=== PATIENT | female | born 1960 | race Caucasian/White ===

== ENCOUNTER 2024-04-28 17:10 | Emergency (ER) | payer OTHER, SELFPAY ==
[2024-04-28 17:17] VITALS: BP 213/124
--- NOTE | 2024-04-28 17:17 | ED.PDOC.TRB ---
ED Provider Triage
-
Patient seen by provider in Triage?: Seen in Triage
Attestation: A medical screening examination has been initiated by a qualified medical provider. Based on the assessment performed at this time, it has been determined that an emergent medical condition may exist and the patient has been informed
that further medical evaluation and possible additional diagnostic testing may be needed.
HPI: 64-year-old female presents for evaluation of low back pain rating down the left leg ongoing for the past week. She has been taking Tylenol and Excedrin without relief. Pain began after bending forward and feeling a pop in the back. Denies
loss of urinary continence
GENERAL: Alert , in no apparent distress
EYE: No visual abnormalities.
NECK: Trachea midline
ENT: No visible abnormalities.
LUNGS: No acute respiratory distress
NEUROLOGICAL: Alert and oriented
SKIN: Skin intact. No visible changes.
MUSCULOSKELETAL: Moving extremities normally
PSYCH: Normal and appropriate interaction.
Assessment: Acute lumbar radiculopathy, no clinical symptoms concerning for spinal cord compression. Will give Toradol for supportive care
This is a medical evaluation conducted in person to initiate diagnostic evaluation and provide initial therapeutics. Please see further documentation by the treating clinician.
[2024-04-28 17:41] VITALS: BMI 39.3
[2024-04-28] MEDS: TORADOL 30 MG IM (17:43)
[2024-04-28 18:14] VITALS: BP 187/105
--- NOTE | 2024-04-28 19:56 | ED.GENMED ---
History of Present Illness
General
Chief Complaint: Back Pain
Source: patient
Time Seen by Provider: 04/28/24 19:10
History of Present Illness
History of Present Illness:
64-year-old female with past medical history of a lower GI bleed presenting to the emergency department for evaluation of left-sided lower back pain that has been gradually worsening over the last week with pain now radiating down into her left
thigh with some paresthesia to the anterior left thigh. Patient states that movement seems to exacerbate her symptoms. She has been taking Tylenol with minimal relief. Patient has an appointment with back specialist tomorrow but due to the nature
of the pain decided to come to the ER this evening for further evaluation. Patient denies any fevers, chills, rigors, bowel changes, urinary symptoms, saddle anesthesia, focal weakness or numbness, traumatic injuries, abnormal weight loss, chronic
corticosteroid use. Patient without any other concerns.
Past History
Past History
ED Past Medical History: Other (Hemorrhoids)
ED Past Surgical History: None
Social History
Tobacco: Non-smoker
Alcohol: None
Drug: None
Personal:
Living: with family
Family History
Family History: Other (Cancer)
Review of Systems
Review of Systems
All Other Systems: ROS reviewed and negative except as documented in HPI and ROS
Phy Exam
Physical Exam
Physical Exam:
GENERAL: Alert , in no apparent distress
EYE: clear conjunctiva b/l
NECK: Supple
ENT: mmm.
ABDOMEN: Soft, without focal tenderness, no r/g, no cvat
BACK: Normal range of motion, mild sacroiliac tenderness on the left, no midline bony tenderness, no rashes
NEUROLOGICAL: Alert and oriented, no focal neuro deficits. Patellar deep tendon reflexes intact and equal bilaterally, sensation grossly intact and equal to light touch bilateral lower extremities
SKIN: Warm and dry, skin intact.
MUSCULOSKELETAL: No edema, well perfused. EHL intact bilaterally
PSYCH: Normal and appropriate interaction.
Scores
Heart Failure Risk
Heart Failure Risk Score: Not Applicable
Heart Score for Chest Pain Patients
STEMI patient?: Not applicable
Withdrawal Assessment of Alcohol
Withdrawal Assessment Completed?: Not applicable
Course
Orders/Labs/Results
Orders:
Orders
04/28/24 17:17
Ketorolac [Toradol] 30 mg IM NOW STA
04/28/24 19:10
CR Lumbar Spine Comp Min 4 Vw* Urgent
Comment:
Reason For Exam: low back pain
Vital Signs
Initial and Last Documented VS:
Initial Vital Signs
Temp Pulse Resp BP Pulse Ox
99.8 F 120 17 213/124 99
04/28/24 17:17 04/28/24 17:17 04/28/24 17:17 04/28/24 17:17 04/28/24 17:17
Last Documented Vital Signs
Temp Pulse Resp BP Pulse Ox
99.8 F 89 18 187/105 98
04/28/24 17:17 04/28/24 18:14 04/28/24 18:14 04/28/24 18:14 04/28/24 18:14
MDM/Problems Addressed
Differential Diagnosis Includes:
Disc herniation, nerve impingement, spinal stenosis, sciatica, lumbar strain, no concern for cord impingement/cauda equina/infectious etiology
MDM/Problems Addressed:
64-year-old female presenting to the emergency department for evaluation of gradually worsening back pain over the last week when she had bent down to pick something up and twisted. Patient states that she has had similar pain before but it usually
resolves after 1 to 2 days and that today symptoms have been ongoing for about a week and now with pain radiating into her left thigh. Will order x-ray for further evaluation. Patient has an appointment tomorrow with specialist. She has history
of GI bleeding so would like to avoid NSAIDs. Prescription for Medrol pack ordered however patient will hold on this medication until she sees the specialist tomorrow. Baclofen prescription will be sent to pharmacy. Awaiting results of x-ray.
*Radiology
Radiology exam reviewed: preliminary read by ED provider (Significant degenerative changes throughout the lumbar spine)
*Pulse Oximetry
Patient hypoxic: no
*Critical Care Note
Total Time (30-74mins, 75-104mins- exclusive of procedures): Not Applicable
Patient Management
Escalation/DeEscalation of care consider admission/obs:
X-ray shows significant degenerative changes throughout the entirety of the lumbar spine. Is stable for discharge home and will follow-up as she already has scheduled.
ED Attending Note
-
Portions of this chart may have been created with voice recognition software.� Occasional wrong word or��sound alike� substitutions may have occurred due to the inherent limitations of voice recognition software.
Discharge Plan
Departure
Patient Disposition: Home (Routine Discharge)
Date of Disposition: 04/28/24
Time of Disposition: 19:56
Patient with high blood pressure during this ER visit?: Yes
Discharge Problem:
Dorsalgia of lumbosacral region
Instructions: Low Back Pain (DC)
Prescriptions:
New
baclofen 10 mg tablet
10 mg PO BID PRN (Reason: muscle spasm) Qty: 10 0RF
methylprednisolone [Medrol (Jacob)] 4 mg tablets,dose pack
4 mg PO DIRECTED Qty: 21 0RF
No Action
ahcsdudk-xbnt-apx-folic acid [Centrum] 1 EACH tablet,chewable
1 ea PO DAILY
calcium carbonate-vit D3-min [Caltrate 600-D Plus Minerals] 1 TAB tablet
1 tab PO DAILY
Referrals:
NONE,* [Family Provider] -
Interventions
Interventions:
*Risk Screen - Suicide Last Done: 04/28/24 17:19
*General Assessment Last Done: 04/28/24 17:19
*Neglect/Abuse Screening Last Done: 04/28/24 17:19
*ED COVID-19 Vaccine History Last Done: 04/28/24 17:19
*Nursing Disposition Last Done: 04/28/24 20:06
ED-Musculoskeletal Assessment Last Done: 04/28/24 17:49
Discharge Date and Time
Discharge Date/Time: 04/28/24 20:07
Print Language: PANAMANIAN
== END 2024-04-28 20:07 | disposition home or self-care (01) ==
LOC: EMR 17:10
PROVIDERS: EMERGENCY PHYSICIAN Student in an Organized Health Care Education/Training Program
DX: M54.50 Low back pain, unspecified (principal); M79.652 Pain in left thigh; R20.2 Paresthesia of skin; R03.0 Elevated blood-pressure reading, without diagnosis of hypertension; M51.35 Other intervertebral disc degeneration, thoracolumbar region
CPT/HCPCS: 99284; 96372; 72110

== ENCOUNTER → 2024-06-16 16:37 | Outpatient (REF) | payer OTHER, SELFPAY | LOC: PAVMRI 16:37 | PROVIDERS: ATTENDING PHYSICIAN Physician Assistant | DX: M54.16 Radiculopathy, lumbar region (principal) | CPT/HCPCS: 72148 ==

== ENCOUNTER → 2024-07-28 09:48 | Outpatient (REF) | payer OTHER, SELFPAY | LOC: RAD 09:48 | PROVIDERS: ATTENDING PHYSICIAN Nurse Practitioner Family | DX: N85.8 Other specified noninflammatory disorders of uterus (principal) | CPT/HCPCS: 76830; 76856 ==

== ENCOUNTER → 2024-11-16 07:49 | Outpatient (REF) | payer OTHER, SELFPAY | LOC: MRI 3T 07:49 | PROVIDERS: ATTENDING PHYSICIAN Nurse Practitioner Family; REFERRING PHYSICIAN Obstetrics & Gynecology | DX: R19.09 Other intra-abdominal and pelvic swelling, mass and lump (principal) | CPT/HCPCS: 72197; A9575 ==